=== PATIENT | male | born 2000 | race Caucasian/White ===

== ENCOUNTER 2024-12-30 12:06 | Emergency (ER) | payer OTHER, SELFPAY ==
[2024-12-30 12:13] VITALS: BP 137/82
[2024-12-30] MEDS: DEBROX EAR DROPS 1 DROP OTIC (12:37)
--- NOTE | 2024-12-30 13:17 | ED.GENMED ---
History of Present Illness
General
Chief Complaint: Ear Problem
Time Seen by Provider: 12/30/24 12:28
History of Present Illness
History of Present Illness:
24-year-old male presents the emergency department for evaluation of left ear pain and hearing loss beginning this morning. Has a history of this secondary to cerumen impactions. Denies recent fevers or chills or URI symptoms
Review of Systems
Review of Systems
Allergies reviewed?: Yes
All Other Systems: ROS reviewed and negative except as documented in HPI and ROS
Phy Exam
Physical Exam
Physical Exam:
GEN: Well appearing, NAD, WDWN
HEENT: Oral mucosa moist, no scleral icterus. Complete obstruction of the left external auditory canal secondary to cerumen, clear right external auditory canal
Cardiac: Regular rate
Lung: No respiratory distress, no tachypnea
MSK: No gross deformity or injuries
Skin: Good color, no pallor or jaundice, no rashes
Neuro: AO x3, moves all extremities freely
Psych: Calm, cooperative
Course
Orders/Labs/Results
Orders:
Orders
12/30/24 12:33
Carbamide Peroxide [Debrox Ear Drops] See Dose Instructions [facility] NOW STA
Vital Signs
Initial and Last Documented VS:
Initial Vital Signs
Temp Pulse Resp BP Pulse Ox
98.9 F 88 16 137/82 98
12/30/24 12:13 12/30/24 12:13 12/30/24 12:13 12/30/24 12:13 12/30/24 12:13
Last Documented Vital Signs
Temp Pulse Resp BP Pulse Ox
98.9 F 75 20 124/68 98
12/30/24 12:13 12/30/24 14:02 12/30/24 14:02 12/30/24 14:02 12/30/24 14:02
MDM/Problems Addressed
MDM/Problems Addressed:
Ear irrigated after Debrox solution was applied with removal of cerumen
*Critical Care Note
Total Time (30-74mins, 75-104mins- exclusive of procedures): Not Applicable
ED Attending Note
-
Portions of this chart may have been created with voice recognition software.� Occasional wrong word or��sound alike� substitutions may have occurred due to the inherent limitations of voice recognition software.
Discharge Plan
Departure
Patient Disposition: Home (Routine Discharge)
Date of Disposition: 12/30/24
Time of Disposition: 13:58
Patient with high blood pressure during this ER visit?: No
Discharge Problem:
Impacted cerumen of left ear
Instructions: Ear Wax Impaction (DC)
Prescriptions:
No Action
ibuprofen [Advil Liqui-Gel] 200 MG capsule
400 mg PO PRN PRN (Reason: fever)
pfronnhpsk-ZO-SA-acetaminophen 1 EACH tablet, effervescent
1 tab.eff PO PRN PRN (Reason: cold symptoms)
azithromycin 250 MG tablet
250 mg PO DAILY Qty: 6 0RF
Referrals:
Yasmany Perez DO [Family Provider] -
Interventions
Interventions:
*Risk Screen - Suicide Last Done: 12/30/24 12:13
*General Assessment Last Done: 12/30/24 12:13
*Neglect/Abuse Screening Last Done: 12/30/24 12:13
*ED COVID-19 Vaccine History Last Done: 12/30/24 12:13
*Nursing Disposition Last Done: 12/30/24 14:02
Discharge Date and Time
Discharge Date/Time: 12/30/24 14:03
Print Language: BENGALI
[2024-12-30 14:02] VITALS: BP 124/68
== END 2024-12-30 14:03 | disposition home or self-care (01) ==
LOC: EMR 12:06
PROVIDERS: EMERGENCY PHYSICIAN Emergency Medicine; FAMILY PHYSICIAN Family Medicine
DX: H61.22 Impacted cerumen, left ear (principal); H92.02 Otalgia, left ear
CPT/HCPCS: 99283